=== PATIENT | female | born 1960 | race African-American/Black ===

== ENCOUNTER 2016-09-05 13:21 | Emergency (ER) | payer SELFPAY ==
[2016-09-05 13:22] VITALS: BP 156/92; PULSE 82; RESP 16; TEMP 98.2; O2SAT 98
--- NOTE | 2016-09-05 13:54 | PD ---
HPI Chief Complaint: cough Time Seen by Provider: 13:48 Travel History International Travel<30 days: No Contact w/Intl Traveler<30days: No Traveled to known affect area: No History of Present Illness HPI 56-year-old female smoker presents for evaluation of cough. Symptoms started 3 days ago. The cough is productive with yellow phlegm. It is worsened night. She has been using [id number] Mucinex for symptom relief. Associated with left-sided sinus pressure and nasal congestion. No fevers or chills. No recent travel. No calf swelling. No abdominal pain. No sick contacts. No other complaints. PFSH Past Medical History ?: Not Past Surgical History Abdominal Surgery: Yes (C SECTION X 2) Hysterectomy: Yes Social History Alcohol Use: Yes (WINE SOMETIMES) Tobacco Use: Yes (5 CIGS A DAY) Allergies-Medications (Allergen,Severity, Reaction): Coded Allergies: No Known Allergies (Verified , 09/05/16) Reported Meds & Prescriptions Reported Meds & Active Scripts Active Proair Hfa 8.5 GM Inh (Albuterol Sulfate) 90 Mcg/Act Aer 2 Puff INH Q4-6H PRN 108 mcg/actuation Prednisone 20 Mg Tab 20 Mg PO BID 5 Days Review of Systems Except as stated in HPI: all other systems reviewed are Neg Physical Exam Narrative GENERAL: Well-developed well-nourished female in no acute distress SKIN: Warm and dry. HEAD: Atraumatic. Normocephalic. EYES: Pupils equal and round. No scleral icterus. No injection or drainage. ENT: No nasal bleeding or discharge. Mucous membranes pink and moist. Tympanic membranes appear normal. No oral pharyngeal erythema or exudate. NECK: Trachea midline. No JVD. No lymphadenopathy. CARDIOVASCULAR: Regular rate and rhythm. No murmur appreciated. RESPIRATORY: No accessory muscle use. Wheezing bilaterally. No crackles. GASTROINTESTINAL: Abdomen soft, non-tender, nondistended. Hepatic and splenic margins not palpable. MUSCULOSKELETAL: No obvious deformities. No clubbing. No cyanosis. No edema. NEUROLOGICAL: Awake and alert. No obvious cranial nerve deficits. Motor grossly within normal limits. Normal speech. Data Data Last Documented VS Vital Signs Date Time Temp Pulse Resp B/P Pulse Ox O2 Delivery O2 Flow Rate FiO2 09/05/16 13:22 98.2 82 16 156/92 98 Room Air Orders Chest, Pa & Lat (09/05/16 ) Albuterol-Ipratropium Neb (Duoneb Neb) (09/05/16 14:00) Prednisone (Deltasone) (09/05/16 14:00) MDM Medical Decision Making Medical Screen Exam Complete: Yes Emergency Medical Condition: Yes Medical Record Reviewed: Yes Differential Diagnosis Reactive airway disease, COPD, bronchitis, pneumonia, sinusitis, otitis media Narrative Course 56-year-old female smoker presents with 3 days of productive cough. On examination she has wheezing bilaterally. She has no formal history of COPD or asthma. Plan is for DuoNeb therapy and prednisone and chest x-ray. Chest x-ray reveals no acute abnormality. This point in time the plan is to treat the patient with prescriptions for prednisone and albuterol inhaler. She is stable for discharge. Diagnosis Primary Impression: Bronchitis Departure Forms: Tests/Procedures, Work Release Enter return to work date: Sep 09, 2016 Additional Instructions: Medication as prescribed. Follow-up with primary care physician. Return for any emergent medical conditions. Med/Other Pt SpecificInfo: Prescription(s) given Scripts Albuterol 8.5 GM Inh (Proair Hfa 8.5 GM Inh)90 Mcg/Act Aer2 Puff INH Q4-6H PRN ( SHORTNESS OF BREATH) #1 INHALER Ref 0 108 mcg/actuation Prov:Heath Hollis MD 09/05/16 Prednisone 20 Mg Tab20 Mg PO BID 5 Days Ref 0 Prov:Heath Hollis MD 09/05/16 Disposition: 01 DISCHARGE HOME Condition: Stable Randal Sparrow Sep 05, 2016 13:54
[2016-09-05] MEDS ORDERED: predniSONE 20 MG TAB PO ONE (14:00)
[2016-09-05] MEDS: RESP: ALBUTEROL 2.5 MG/IPRATROPIUM 0.5 MG NEB (SCH) INH ×2 (14:00→14:06)
[2016-09-05] MEDS ORDERED: ALBUAER3 INH (14:55)
[2016-09-05] MEDS ORDERED: PRED20 PO (14:55)
--- NOTE | 2016-09-05 15:02 | RADRPT ---
EXAM DATE/TIME: 09/05/2016 15:05 [facility] COMPARISON: No previous studies available for comparison. INDICATIONS : Patient has had a productive cough since Friday. She also states she has had back and chest pain. Baljeet cheng is a smoker. MEDICAL HISTORY : None. SURGICAL HISTORY : None. ENCOUNTER: Initial ACUITY: 3 days PAIN SCORE: 7/10 LOCATION: [facility]. FINDINGS: PA and lateral views of the chest demonstrate the lungs to be symmetrically aerated without evidence of mass, infiltrate or effusion. The cardiomediastinal contours are unremarkable. Osseous structure s are intact. CONCLUSION: No acute disease. Riley Mata MD on September 05, 2016 at 14:55 Board Certified Radiologist. This report was verified electronically.
[2016-09-05 15:26] VITALS: BP 142/87
== END 2016-09-05 15:26 | disposition home or self-care (01) ==
LOC: NETRI 13:21
DX: J40 Bronchitis, not specified as acute or chronic (principal); Z72.0 Tobacco use
CPT/HCPCS: 71020; 94640; 94664; 99283; J7512

== ENCOUNTER 2017-03-25 16:32 | Emergency (ER) | payer SELFPAY ==
[~2017-03-25] VITALS: Ht 160 cm; Wt 80.0 kg
[~2017-03-25 16:32] MED LIST: ALBUAER3 INH; PRED20 PO
[2017-03-25 16:34] VITALS: BP 125/77; PULSE 77; RESP 16; TEMP 98.6; O2SAT 95
--- NOTE | 2017-03-25 16:45 | PD ---
HPI Chief Complaint: Headache Time Seen by Provider: 16:40 Travel History International Travel<30 days: No Contact w/Intl Traveler<30days: No Traveled to known affect area: No History of Present Illness HPI 57 YO F presents to the ED for evaluation of 1 week history of left frontal headache. Gradual onset. Patient endorses photophobia. She denies vision changes , dizziness, difficulties with word finding, unilateral weakness, CP, palpitations, F/C, N/V. She's never had a headache like this before. She also complains of pain of the spine "from my neck to my hips." She denies pain with ROM of the neck, weakness of the extremities, incontinence, saddle anesthesia. She states that she's been lying in bed for the last couple days secondary to this headache. No treatment attempted at home. Patient is a current smoker. She denies chronic health problems. PFSH Past Medical History ?: Not Past Surgical History Abdominal Surgery: Yes (C SECTION X 2) Hysterectomy: Yes Social History Alcohol Use: Yes (WINE SOMETIMES) Tobacco Use: Yes (5 CIGS A DAY) Substance Use: No Allergies-Medications (Allergen,Severity, Reaction): Coded Allergies: No Known Allergies (Verified , 03/25/17) Reported Meds & Prescriptions Reported Meds & Active Scripts Active No Active Prescriptions or Reported Medications Review of Systems Except as stated in HPI: all other systems reviewed are Neg Physical Exam Narrative GENERAL: Well-nourished, well-developed black female in no acute distress. SKIN: Warm and dry. HEAD: Normocephalic. Atraumatic. EYES: No scleral icterus. No injection or drainage. PERRLA. EOMI. The bilateral funduscopic exam appeared within normal limits without papilledema, A- V nicking or blood associated with the optic disc. ENT: Pearly philippe tympanic membranes bilaterally. Nasal mucosa is moist. Oropharynx without erythema, edema or exudate. NECK: Supple, trachea midline. No JVD or lymphadenopathy. No midline tenderness to palpation. No nuchal rigidity. Brudzinski is negative. Kernig negative. CARDIOVASCULAR: Regular rate and rhythm without murmurs, gallops, or rubs. No carotid bruits. 2+ DP and radial pulses bilaterally. RESPIRATORY: Breath sounds clear and equal bilaterally. No accessory muscle use. GASTROINTESTINAL: Abdomen soft, non-tender, nondistended. + Bowel sounds NEUROLOGICAL: Awake and alert. Cranial nerves II through XII intact. Motor and sensory grossly within normal limits. Five out of 5 muscle strength in all muscle groups. Normal speech. MUSCULOSKELETAL: No cyanosis, or edema. Patient walks with a normal gait BACK: Nontender without obvious deformity. No CVA tenderness. Data Data Last Documented VS Vital Signs Date Time Temp Pulse Resp B/P (MAP) Pulse Ox O2 Delivery O2 Flow Rate FiO2 03/25/17 16:34 98.6 77 16 125/77 (93) 95 Room Air Orders Orders Ecg Monitoring (03/25/17 17:00) Iv Access Insert/Monitor (03/25/17 17:00) Oximetry (03/25/17 17:00) Sodium Chloride 0.9% Flush (Ns Flush) (03/25/17 17:00) Ketorolac Inj (Toradol Inj) (03/25/17 17:00) Prochlorperazine Inj (Compazine Inj) (03/25/17 17:00) Diphenhydramine Inj (Benadryl Inj) (03/25/17 17:00) Sodium Chlor 0.9% 1000 Ml Inj (Ns 1000 M (03/25/17 17:00) Ct Brain W/O Iv Contrast(Rout) (03/25/17 ) Complete Blood Count With Diff (03/25/17 17:19) Basic Metabolic Panel (Bmp) (03/25/17 17:19) Labs Laboratory Tests Test 03/25/17 17:55 03/25/17 18:43 White Blood Count 5.4 TH/MM3 Red Blood Count 4.86 MIL/MM3 Hemoglobin 13.5 GM/DL Hematocrit 41.2 % Mean Corpuscular Volume 84.6 FL Mean Corpuscular Hemoglobin 27.7 PG Mean Corpuscular Hemoglobin Concent 32.7 % Red Cell Distribution Width 15.6 % Platelet Count 187 TH/MM3 Mean Platelet Volume 8.6 FL Neutrophils (%) (Auto) 33.4 % Lymphocytes (%) (Auto) 54.0 % Monocytes (%) (Auto) 9.6 % Eosinophils (%) (Auto) 2.4 % Basophils (%) (Auto) 0.6 % Neutrophils # (Auto) 1.8 TH/MM3 Lymphocytes # (Auto) 2.9 TH/MM3 Monocytes # (Auto) 0.5 TH/MM3 Eosinophils # (Auto) 0.1 TH/MM3 Basophils # (Auto) 0.0 TH/MM3 CBC Comment DIFF FINAL Differential Comment Blood Urea Nitrogen 13 MG/DL Creatinine 0.70 MG/DL Random Glucose 83 MG/DL Calcium Level 8.3 MG/DL Sodium Level 145 MEQ/L Potassium Level 3.9 MEQ/L Chloride Level 115 MEQ/L Carbon Dioxide Level 22.2 MEQ/L Anion Gap 8 MEQ/L Estimat Glomerular Filtration Rate 105 ML/MIN MDM Medical Decision Making Medical Screen Exam Complete: Yes Emergency Medical Condition: Yes Differential Diagnosis cephalgia versus CVA versus muscle strain versus musculoskeletal pain versus less likely meningitis versus other Narrative Course 57 YO F presents to the ED for evaluation of 1 week history of left frontal headache. Gradual onset. Patient endorses photophobia. She denies vision changes , dizziness, difficulties with word finding, unilateral weakness, CP, palpitations, F/C, N/V. She also complains of pain of the spine "from my neck to my hips." She denies pain with ROM of the neck, weakness of the extremities , incontinence, saddle anesthesia. She states that she's been lying in bed for the last couple days secondary to this headache. Patient is normotensive, afebrile on presentation. No focal neuro deficits. No nuchal rigidity. Kernig 's and Brudzinski's negative. IV was established. Patient was administered 1 L normal saline, 25 mg Benadryl, 5 mg Compazine and [address] of the head negative for acute process per radiology read. On recheck the patient reports significant improvement of her symptoms. I instructed the patient to treat headaches--should they recur-- at home with [id number] medications. She does not currently have a primary care provider she was provided outpatient resources for the [facility]. I discussed reasons to return to the ED with the patient including worsening symptoms that are not responsive to medications at home. She indicated understanding of the instructions and is agreeable to the care plan. This patient is stable and discharged home. Diagnosis Primary Impression: Cephalgia Qualified Codes: R51 - Headache Referrals: [facility] Patient Instructions: Acute Headache (ED), General Instructions Additional Instructions: Rest, hydrate. Return to normal, gentle activities as tolerated. Avoid known stressors as you're able. Treat headaches at home with zosg-[id number] medications (Tylenol or Ibuprofen ) shortly after onset for best results. Follow up with the [facility] as discussed. Return to the ED for worsening symptoms or any urgent or emergent medical condition. Med/Other Pt SpecificInfo: Prescription(s) given Scripts No Active Prescriptions or Reported Meds Disposition: 01 DISCHARGE HOME Condition: Stable Sanjana Morales Mar 25, 2017 16:45
[2017-03-25] MEDS ORDERED: diphenhydrAMINE HCL 50 MG/ML VIAL IVP ONE (17:00)
[2017-03-25] MEDS ORDERED: PROCHLORPERAZINE INJ 10 MG/2 ML VIAL IVP ONE (17:00)
[2017-03-25] MEDS ORDERED: SODIUM CHLOR 0.9% 1000 ML INJ 1,000 ML IV ONE (17:00)
[2017-03-25] MEDS ORDERED: SODIUM CHLORIDE 0.9% FLUSH 10 ML FLUSH IVF PRN (17:00)
[2017-03-25] MEDS ORDERED: KETOROLAC TROMETHAMINE 30 MG/ML (IVP) VIAL IVP ONE (17:00)
[2017-03-25 18:16] LABS: AUTOMATED NEUTROPHIL # 1.8 TH/MM3 (1.8-7.7); BASOPHIL % 0.6 % (0.0-2.0); EOSINOPHIL # 0.1 TH/MM3 (0-0.4); EOSINOPHIL % 2.4 % (0.0-4.0); HEMATOCRIT 41.2 % (35.0-46.0); HEMO FLAGS DIFF FINAL; LYMPHOCYTE # 2.9 TH/MM3 (1.0-4.8); MEAN CELL VOLUME 84.6 FL (80.0-100.0); MEAN CORPUSCULAR HEMOGLOBIN 27.7 PG (27.0-34.0); MEAN CORPUSCULAR HGB CONC 32.7 % (32.0-36.0); MONO % 9.6 % (0.0-8.0); NEUT % 33.4 % (16.0-70.0); PLATELET COUNT 187 TH/MM3 (150-450); RED BLOOD COUNT 4.86 MIL/MM3 (4.00-5.30); RED CELL DISTRIBUTION WIDTH 15.6 % (11.6-17.2); WHITE BLOOD COUNT 5.4 TH/MM3 (4.0-11.0)
--- NOTE | 2017-03-25 18:46 | RADRPT ---
EXAM DATE/TIME: 03/25/2017 18:18 [facility] COMPARISON: No previous studies available for comparison. INDICATIONS : Left frontal cepalgia for one week. RADIATION DOSE: 47.35 CTDIvol (mGy) MEDICAL HISTORY : None SURGICAL HISTORY : Hysterectomy. section. ENCOUNTER: Initial ACUITY: 1 day PAIN SCALE: 7/10 LOCATION: Left head TECHNIQUE: Multiple contiguous axial images were obtained of the head. Using automated exposure control and adj ustment of the mA and/or kV according to patient size, radiation dose was kept as low as reasonably a chievable to obtain optimal diagnostic quality images. DICOM format image data is available electro nically for review and comparison. FINDINGS: CEREBRUM: The ventricles are normal for age. No evidence of midline shift, mass lesion, hemorrhage or acute in farction. No extra-axial fluid collections are seen. POSTERIOR FOSSA: The cerebellum and brainstem are intact. The 4th ventricle is midline. The cerebellopontine angle i s unremarkable. EXTRACRANIAL: The visualized portion of the orbits is intact. SKULL: The calvaria is intact. No evidence of skull fracture. CONCLUSION: Normal examination. Riley Mata MD on March 25, 2017 at 18:44 Board Certified Radiologist. This report was verified electronically.
[2017-03-25 19:47] LABS: BICARBONATE 22.2 MEQ/L (21.0-32.0); POTASSIUM 3.9 MEQ/L (3.5-5.1)
== END 2017-03-25 20:45 | disposition home or self-care (01) ==
LOC: NEPD 16:32
DX: R51 Headache (principal); H53.149 Visual discomfort, unspecified; F17.210 Nicotine dependence, cigarettes, uncomplicated
CPT/HCPCS: 70450; 80048; 85025; 96361; 96374; 96375; 99285; J0780; J1200; J1885; J7030

== ENCOUNTER 2017-10-07 17:05 | Emergency (ER) | payer SELFPAY | END 2017-10-07 17:40 | disposition left against medical advice (07) | LOC: NED 17:05 | DX: M54.9 Dorsalgia, unspecified (principal) | CPT/HCPCS: 99281 ==